=== PATIENT | female | born 1990 | race Hispanic/Latino ===

== ENCOUNTER 2021-09-09 09:30 | Emergency (ER) | payer BC ==
[~2021-09-09] VITALS: Ht 154.9 cm; Wt 81.6 kg
[2021-09-09] MEDS ORDERED: KETOROLAC TROMETHAMINE 30 MG/ML VIAL IV STA (09:59)
[2021-09-09] MEDS ORDERED: KETOROLAC TROMETHAMINE 30 MG/ML VIAL ONE (11:08)
[2021-09-09] MEDS ORDERED: KETOROLAC TROMETHAMINE 30 MG/ML VIAL IM STA (11:43)
[2021-09-09] MEDS ORDERED: CYCLOBENZAPRINE5 MG PO (12:07)
[2021-09-09] MEDS ORDERED: KETOROLAC TROME10 MG PO (12:07)
== END 2021-09-09 12:17 | disposition home or self-care (01) ==
LOC: FSED 10:00
DX: R10.9 Unspecified abdominal pain (principal); N20.0 Calculus of kidney; M54.50 Low back pain, unspecified
CPT/HCPCS: 74176; 81003; 81025; 99283; J1885

== ENCOUNTER 2021-11-05 06:19 | Emergency (ER) | payer BC ==
[~2021-11-05] VITALS: Ht 162.6 cm; Wt 85.7 kg
[~2021-11-05 06:19] MED LIST: CYCLOBENZAPRINE5 MG PO; KETOROLAC TROME10 MG PO
[2021-11-05] MEDS ORDERED: SODIUM CHLORIDE 0.9% 1000ML 1,000 ML IV STA (06:43)
[2021-11-05] MEDS ORDERED: ONDANSETRON HCL INJ 2MG/ML 2ML 2 MG/ML VIAL IV ONE (06:45)
[2021-11-05] MEDS ORDERED: KETOROLAC TROMETHAMINE 30 MG/ML VIAL IV ONE (06:45)
[2021-11-05] MEDS ORDERED: FAMOTIDINE 20 MG/2 ML VIAL IV ONE (06:45)
[2021-11-05] MEDS ORDERED: SODIUM CHLORIDE 0.9% 1000ML 1,000 ML ONE (06:57)
[2021-11-05] MEDS ORDERED: ONDANSETRON ODT4 MG PO (07:08)
[2021-11-05] MEDS ORDERED: ACETAMINOPHEN-1 EAC4 PO (07:08)
[2021-11-05] MEDS ORDERED: KETOROLAC TROME10 MG PO (07:08)
== END 2021-11-05 07:54 | disposition home or self-care (01) ==
LOC: FSED 06:26
DX: R11.2 Nausea with vomiting, unspecified (principal); R10.30 Lower abdominal pain, unspecified; N13.2 Hydronephrosis with renal and ureteral calculous obstruction
CPT/HCPCS: 74176; 80053; 81003; 81025; 85025; 96374; 96375; 96376; 99284; J1885; J2405; J7030